=== PATIENT | female | born 1935 | race Two or more races ===

== ENCOUNTER → 2018-03-20 | Outpatient (CLI) | payer OTHER ==
[~2018-03-20] MED LIST: DILTIAZEM 24HR300 MG PO
== END | disposition home or self-care (01) ==
LOC: RAD 09:21
DX: M25.551 Pain in right hip (principal); M25.552 Pain in left hip

== ENCOUNTER → 2018-08-13 | Outpatient (CLI) | payer OTHER | END | disposition home or self-care (01) | LOC: NUCLEAR 09:54 | DX: M80.00XA Age-related osteoporosis with current pathological fracture, unspecified site, initial encounter for fracture (principal); M81.0 Age-related osteoporosis without current pathological fracture; M85.89 Other specified disorders of bone density and structure, multiple sites ==

== ENCOUNTER 2019-09-02 11:27 | Outpatient (CLI) | payer OTHER | END 2019-09-02 11:34 | disposition home or self-care (01) | LOC: RAD 11:27 | DX: M25.571 Pain in right ankle and joints of right foot (principal) ==

== ENCOUNTER 2019-09-05 11:07 | Outpatient (CLI) | payer OTHER | END 2019-09-05 12:00 | disposition home or self-care (01) | LOC: NUCLEAR 11:07 | DX: M25.461 Effusion, right knee (principal); M79.661 Pain in right lower leg ==

== ENCOUNTER 2023-02-16 10:14 | Outpatient (CLI) | payer OTHER | END 2023-02-16 10:23 | disposition home or self-care (01) | LOC: LAB 10:14 | DX: Z01.818 Encounter for other preprocedural examination (principal); E78.9 Disorder of lipoprotein metabolism, unspecified; A49.3 Mycoplasma infection, unspecified site ==

== ENCOUNTER 2023-02-16 12:17 | Outpatient (CLI) | payer OTHER | END 2023-02-16 12:26 | disposition home or self-care (01) | LOC: SONOGRAMA 12:17 | PROVIDERS: ATTEND Otolaryngology | DX: E04.9 Nontoxic goiter, unspecified (principal) ==

== ENCOUNTER 2023-10-08 13:24 | Outpatient (CLI) | payer OTHER | END 2023-10-08 13:33 | disposition home or self-care (01) | LOC: RAD 13:24 | PROVIDERS: ATTEND General Practice | DX: S02.652B Fracture of angle of left mandible, initial encounter for open fracture (principal) ==

== ENCOUNTER 2024-01-03 12:35 | Outpatient (CLI) | payer OTHER | END 2024-01-03 12:37 | disposition home or self-care (01) | LOC: SONOGRAMA 12:35 | PROVIDERS: ATTEND Internal Medicine | DX: M75.100 Unspecified rotator cuff tear or rupture of unspecified shoulder, not specified as traumatic (principal) ==

== ENCOUNTER 2024-07-11 10:43 | Outpatient (CLI) | payer OTHER | END 2024-07-11 10:54 | disposition home or self-care (01) | LOC: SONOGRAMA 10:43 | PROVIDERS: ATTEND Internal Medicine | DX: N80.8 Other endometriosis (principal); R10.2 Pelvic and perineal pain; R10.9 Unspecified abdominal pain ==